=== PATIENT | male | born 1970 | race African-American/Black ===

== ENCOUNTER 2017-02-22 10:03 | Emergency (ER) | payer MEDICAID ==
[~2017-02-22] VITALS: Ht 175.3 cm; Wt 93.4 kg
--- NOTE | 2017-02-22 10:43 | Emergency Room Report ---
History of Present Illness General Chief Complaint: Headache Source: Patient Present Illness HPI Patient presents with 3 days of headache. It's occipital. He's had these headaches before. They seem to be getting more frequent. Denies any fevers. He is nauseated but without any vomiting. 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 He just moved from [place] and doesn't have a primary doctor in is out of Tylenol with codeine. Pain 8/10, constant, somewhat throbbing, radiates to neck. No neck pain. This began after a night drinking alcohol. No trauma, blood thinners, incontinence, oncologic problem, weakness, numbness. Allergies: Coded Allergies: SULFA (SULFONAMIDE ANTIBIOTICS) (Verified Allergy, Severe, Rash, 02/22/17) Patient History Past Medical History: see triage record Social History: Reports: alcohol use, Denies: smoking Social History Narrative unemployed Reviewed Nursing Documentation: PMH: Agreed, PSxH: Agreed Nursing Documentation-PMH Past Medical History: No History, Except For Hx Neurological Problems: Yes - neck/skull surgery Review of Systems All Other Systems: negative except mentioned in HPI Physical Exam Vital Signs Date Time Temp Pulse Resp B/P Pulse Ox O2 Delivery O2 Flow Rate FiO2 02/22/17 10:17 98.1 68 18 126/85 98 Room Air Sp02 EP Interpretation: reviewed, normal General Appearance: well appearing, no apparent distress Head: normocephalic, atraumatic Eyes: bilateral eye EOMI, bilateral eye PERRL, bilateral eye normal inspection ENT: hearing grossly normal, normal voice Neck: full range of motion, supple Respiratory: no respiratory distress, speaking full sentences Cardiovascular #2: 2+ radial (L) Gastrointestinal: normal inspection Musculoskeletal: back normal, digits/nails normal, gait/station normal, normal range of motion Neurologic: alert, oriented x3, 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 Ddx: tension, migraine, related to alcohol, viral syndrome. No red flag symptoms or signs. No imaging or labs needed. Will focus on analgesia. No medical emergency present at this time. Patient stable for outpatient observation and treatment. Last Vital Signs Date Time Temp Pulse Resp B/P Pulse Ox O2 Delivery O2 Flow Rate FiO2 02/22/17 11:22 98.3 02/22/17 11:21 72 19 120/82 97 Room Air Status: improved Disposition: HOME, SELF-CARE Condition: Improved Scripts Acetaminophen With Codeine (T#3) (TYLENOL #3 TAB*) Y Tab 1 TAB ORAL Q8H Y for For Pain, #12 TAB Prov: Blas Carnes M.D. 02/22/17 Ibuprofen* (MOTRIN*) 600 Mg Tablet 600 MG ORAL Q6H Y for For Pain, #20 TAB Prov: Blas Carnes M.D. 02/22/17 Blas Carnes M.D. February 22, 2017 10:42
[2017-02-22] MEDS ORDERED: Ketorolac 60mg Inj IM ONE (10:45)
[2017-02-22 11:02] VITALS: BP 120/82
[2017-02-22] MEDS ORDERED: ACETAMINOPHEN-1 EAC1 ORAL (11:11)
[2017-02-22] MEDS ORDERED: IBUPROFEN600 MG ORAL (11:11)
[2017-02-22 11:21] VITALS: BP 120/82
== END 2017-02-22 11:21 | disposition home or self-care (01) ==
LOC: EMR 10:44
DX: R51 Headache (principal); Z88.2 Allergy status to sulfonamides; Z98.890 Other specified postprocedural states
CPT/HCPCS: 96372; 99284